=== PATIENT | male | born 1960 | race Two or more races ===

== ENCOUNTER 2018-04-17 12:29 | Emergency (ER) | payer OTHER ==
[~2018-04-17] VITALS: Ht 185.4 cm; Wt 101.6 kg
[~2018-04-17 12:29] MED LIST: ALTACE10 MG; ASPIR 8181 MG; FLEXERIL10 MG PO; KETO10TA2 PO; TRICOR145 MG; VYTORIN 10/20 M1 TAB
[2018-04-17] MEDS ORDERED: ALTACE2.5 MG (12:53)
[2018-04-17] MEDS ORDERED: STERILE SALINE126 ML (12:53)
== END 2018-04-17 16:10 | disposition home or self-care (01) ==
LOC: ER 12:29
DX: R00.2 Palpitations (principal)